=== PATIENT | female | born 1930 | race Caucasian/White ===

== ENCOUNTER 2018-08-31 15:07 | Emergency (ER) | payer MEDICARE, OTHER ==
[~2018-08-31] VITALS: Ht 152.4 cm; Wt 63.0 kg
[~2018-08-31 15:07] MED LIST: ACET500C5 PO; ASPI-903 PO; ATOR20TA38 PO; CARV6.2579 PO; GUAI-47 PO; LEVO500T48 PO; LOSA25TA12 PO; OXYGEN MC; SITA100T11 PO
[2018-08-31 15:16] VITALS: Ht 152.4 cm; Wt 63.0 kg
[2018-08-31] MEDS ORDERED: DIPHTH/TET/ACEL PERTUSS (ADULT) 0.5 ML VIAL IM* ONE (15:30)
[2018-08-31] MEDS ORDERED: ATOR20TA38 PO (16:04)
[2018-08-31] MEDS ORDERED: ASPI-817 PO (16:04)
[2018-08-31] MEDS ORDERED: SITA100T11 PO (16:05)
[2018-08-31] MEDS ORDERED: SACU1TAB PO (16:05)
[2018-08-31] MEDS ORDERED: CARV12.579 PO (16:06)
[2018-08-31 17:26] VITALS: BP 141/86; PULSE 92; RESP 16
--- NOTE | 2018-08-31 17:57 | ERD ---
ER Documentation Chief Complaint Chief Complaint BIBRA#[id number] due to patient has abraision on nasal area s/p trip and fell HPI Patient is an 87-year-old female with coronary disease and diabetes who presents with a trip and fall. The patient was brought in by ambulance. The patient tripped and fell just prior to arrival. She hit her face and was bleeding from the nose but the bleeding is stopped. She has a small laceration to the bridge of the nose. She denies loss of consciousness. She has no pain. She denies vomiting. Her primary doctor is Dr. De La Cruz. ROS All systems reviewed and are negative except as per history of present illness. Medications Home Meds Reported Medications Carvedilol* (Carvedilol*) 12.5 Mg Tablet, 12.5 MG PO BID, #60 TAB 08/31/18 Sacubitril/Valsartan (Entresto 24 mg-26 mg Tablet) 1 Each Tablet, 1 EACH PO BID, TAB 08/31/18 Sitagliptin* (Januvia*) 100 Mg Tablet, 100 MG PO DAILY, #30 TAB 08/31/18 Atorvastatin Calcium* (Atorvastatin Calcium*) 20 Mg Tablet, 20 MG PO QHS, #30 TAB 08/31/18 Aspirin* (Aspirin* EC) 81 Mg Tablet.dr, 81 MG PO DAILY, TAB 08/31/18 Discontinued Reported Medications Aspirin* (Aspirin* Chew) 81 Mg Tab.chew, 81 MG PO DAILY, TAB.CHEW 08/03/15 Sitagliptin* (Januvia*) 100 Mg Tablet, 100 MG PO DAILY, #30 TAB 08/03/15 Carvedilol* (Carvedilol*) 6.25 Mg Tablet, 6.25 MG PO BID, #60 TAB 08/03/15 Atorvastatin Calcium* (Atorvastatin Calcium*) 20 Mg Tablet, 20 MG PO QHS, #30 TAB 08/03/15 Losartan Potassium* (Losartan Potassium*) 25 Mg Tablet, 12.5 MG PO DAILY, TAB 08/03/15 Discontinued Scripts Acetaminophen* (Tylophen*) 500 Mg Capsule, 2 CAP PO Q8H PRN for PAIN AND OR ELEVATED TEMP, #20 CAP Prov:ANIYAH CHRISTINA MD 12/07/15 Home Oxygen* (Home Oxygen*) 1 Each Dme, 1 EACH [facility] continuous, #4 DME 1 Refill Prov:ANDREW STROUD MD 08/07/15 Levofloxacin* (Levaquin*) 500 Mg Tablet, 500 MG PO DAILY for 10 Days, TAB Prov:AHMET VALDEZ MD 08/07/15 Guaifenesin/D-Methorphan Hb (Amibid Dm Tablet Sa) 1 Tab.sr .12 H Tab.sr.12h, 1 TAB PO BID for 7 Days, #14 Prov:AHMET VALDEZ MD 08/07/15 Allergies Allergies: Coded Allergies: No Known Allergy (Unverified , 08/31/18) PMhx/Soc History of Surgery: No Anesthesia Reaction: No Hx Neurological Disorder: No Hx Respiratory Disorders: No Hx Cardiac Disorders: Yes (Heart Attack ) Hx Psychiatric Problems: No Hx Miscellaneous Medical Probl: Yes (CAD, anemia, DM, dyslipidemia) Hx Alcohol Use: No Hx Substance Use: No Hx Tobacco Use: No Smoking Status: Never smoker FmHx Family History: No diabetes Physical Exam Vitals Vital Signs Date Temp Pulse Resp B/P (MAP) Pulse Ox O2 O2 Flow FiO2 Time Delivery Rate 08/31/18 97.6 92 16 141/86 97 Room Air 17:26 (104) 08/31/18 98.0 93 22 136/86 98 15:16 (103) Physical Exam Const: No acute distress Head: Atraumatic Eyes: Normal Conjunctiva ENT: Swelling and deformity of the nose with small laceration of the nasal bridge Neck: Full range of motion. No meningismus. Resp: Clear to auscultation bilaterally Cardio: Regular rate and rhythm, no murmurs Abd: Soft, non tender, non distended. Normal bowel sounds Skin: 1 cm laceration to the nasal bridge Back: No midline or flank tenderness Ext: No cyanosis, or edema Neur: Awake and alert Psych: Normal Mood and Affect Results 24 hrs Current Medications Medications Dose Sig/Sharee Start Time Status Last (Trade) Ordered Route PRN Stop Time Admin Dose Reason Admin Diphtheria/ 0.5 ml ONCE ONCE 08/31/18 DC 08/31/18 Tetanus/Acell IM* 15:30 16:17 Pertussis 08/31/18 15:31 (Adacel) Procedures/MDM X-ray Hand 3V interpreted by me: Scaphoid: Normal Bones: No fracture Joints: No dislocation Foreign body: None CT brain read by radiology. CT cervical spine read by radiology. CT facial bones shows nasal fracture per radiology. Laceration Repair by me: Anesthesia: None required Location: Nasal bridge Tendon/Joint/Nerves: No injury Foreign body: None detected after copious irrigation a nd exploration Technique: Simple Interrupted Sutures Complexity: No subcutaneous sutures/mucosal repair/edge excision Post Closure Length: 1 cm Patient's bleeding was easily controlled in the department and there is no indication of anemia. No evidence of compartment syndrome, neurologic injury, vascular injury, open j oint, tendon laceration, or foreign body. Patient is appropriate for outpatient follow up. 48 hour wound check. Scar minimization instructions given. Departure Diagnosis: Primary Impression: Laceration Additional Impressions: Nasal fracture Encounter type: initial encounter Fracture type: closed Qualified Codes: S02.2XXA - Fracture of nasal bones, initial encounter for closed fracture Fall Encounter type: initial encounter Qualified Codes: W19.XXXA - Unspecified fall, initial encounter Condition: Fair Patient Instructions: Fall, Mechanical, Fracture, Nose (With X-Ray), Laceration, Face (Skin Glue) Referrals: MACKENZIE DE LA CRUZ (PCP) Additional Instructions: Call your primary care doctor TOMORROW for an appointment during the next 1-2 days.See the doctor sooner or return here if your condition worsens before your appointment time. MERCEDES VILLEDA MD Aug 31, 2018 17:57
== END 2018-08-31 17:26 | disposition home or self-care (01) ==
LOC: E/R 15:07
DX: S01.21XA Laceration without foreign body of nose, initial encounter (principal); E11.9 Type 2 diabetes mellitus without complications; I25.10 Atherosclerotic heart disease of native coronary artery without angina pectoris; S02.2XXA Fracture of nasal bones, initial encounter for closed fracture; W01.0XXA Fall on same level from slipping, tripping and stumbling without subsequent striking against object, initial encounter; Y92.9 Unspecified place or not applicable; Z86.73 Personal history of transient ischemic attack (TIA), and cerebral infarction without residual deficits; Z79.82 Long term (current) use of aspirin; Z23 Encounter for immunization; Z79.84 Long term (current) use of oral hypoglycemic drugs
CPT/HCPCS: 70450; 70486; 72125; 90471; 90715